=== PATIENT | female | born 1935 | race African-American/Black ===

== ENCOUNTER 2017-02-04 17:56 | Emergency (ER) | payer OTHER ==
[~2017-02-04] VITALS: Ht 160 cm; Wt 50.0 kg
[~2017-02-04 17:56] MED LIST: AMLODIPINE; HCTZ; PREDNISONE; PROAIR; albuterol; prednisone
[2017-02-04] MEDS ORDERED: IBUPROFEN 400MG TABLET PO ONE (18:30)
[2017-02-04 21:20] VITALS: BP 131/74
== END 2017-02-04 21:20 | disposition home or self-care (01) ==
LOC: ER 18:07
DX: M25.562 Pain in left knee (principal); M25.561 Pain in right knee; M19.90 Unspecified osteoarthritis, unspecified site; F02.80 Dementia in other diseases classified elsewhere, unspecified severity, without behavioral disturbance, psychotic disturbance, mood disturbance, and anxiety; I10 Essential (primary) hypertension; G30.9 Alzheimer's disease, unspecified; J45.909 Unspecified asthma, uncomplicated; Z96.653 Presence of artificial knee joint, bilateral
CPT/HCPCS: 73562; 99284